=== PATIENT | male | born 1955 | race Hispanic/Latino ===

== ENCOUNTER 2019-07-14 02:39 | Emergency (ER) | payer BC ==
[2019-07-14 03:19] LABS: Base Excess-Venous -22.2 mmol/L (-2.0 to 3.0); Bicarbonate (HCO3v) 10.4 mmol/L (22.0-28.0); CO2 Tension (PvCO2) 50.2 mmHg (40.0-50.0); Calcium, Ionized 1.63 mmol/L (See Comments:); Chloride 111 mmol/L (98-107); Glucose 349 mg/dL (80-115); Hemoglobin - Calc 14.7 g/dL (14.0-18.0); Lactate 10.35 mmol/L (0.50-2.20); Potassium 4.7 mmol/L (3.5-5.1); Sodium 137 mmol/L (138-145); vO2 Saturation-calc 44.8 % (60.0-85.0)
[2019-07-14] MEDS ORDERED: Norepinephrine 8 MG in Dextrose 5% in Water 242 ML IVPB SCH (03:30)
[2019-07-14 03:43] LABS: Actual Bicarbonate (HCO3a) 9.4 mEq/L (22-28); Analyzer IN Cardio ER; Base Excess (BEa) -23.3 mEq/L (-2.0 to +3.0); CO2 Tension 48.4 mmHg (35.0-45.0); Calcium, Ionized 1.42 mmol/L (1.12-1.30); Carboxyhemoglobin (COHb) 1.4 gm% (0.0-3.0); Hemoglobin (Hb) 13.9 g/dL (14.0-18.0); O2 Tension (PaO2) 73.2 mmHg (> 80.0)
[2019-07-14 03:54] LABS: Eosinophils 1 % (0-10); Hemoglobin 13.9 g/dL (14.0-18.0); Lymphocytes 79 % (21-51); MDiff Complete? YES; Mean Corpuscular HGB CONC 32.7 g/dL (32.0-36.0); Mean Corpuscular Hemoglobin 32.1 pg (27.0-31.0); Mean Corpuscular Volume 98.1 fL (78.0-98.0); Mean Platelet Volume 9.5 fL (7.4-10.4); Monocytes 4 % (0-10); Myelocyte 2 % (0-0); Neutrophil 14 % (42-75); Platelet Count 148 thou/uL (130-400); RBC Distribution Width 12.2 % (11.5-14.5); Red Blood Cell (RBC) Count 4.34 mill/uL (4.70-6.10); White Blood Cell (WBC) Count 10.8 thou/uL (4.8-10.8)
[2019-07-14 04:06] LABS: ALT (SGPT) 629 U/L (8-55); AST (SGOT) 617 U/L (5-34); Albumin 3.5 g/dL (3.4-4.8); Alkaline Phosphatase 86 U/L (40-110); Anion Gap 32 mmol/L (10-20); BUN (Urea Nitrogen) 21 mg/dL (8.4-25.7); Bilirubin, Total 0.3 mg/dL (0.2-1.2); Calc. Creatinine Clearance 0 mL/min (70-130); Carbon Dioxide 11 mmol/L (23-31); Chloride 102 mmol/L (98-107); Estimated GFR-MDRD 32; Globulin 2.9 g/dL (2.4-3.5); Glucose 362 mg/dL (80-115); Protein, Total 6.4 g/dL (5.8-8.1); Sodium 140 mmol/L (136-145)
[2019-07-14 04:08] LABS: Puncture Site RRA; pH, Arterial 6.91 (7.35-7.45)
--- NOTE | 2019-07-14 08:08 | RAD ---
CHEST 1 VIEW: HISTORY: CPR in progress. Comparison: 05/21/2007. FINDINGS: Cardiac silhouette:Magnified cardiac silhouette main part be due to portable technique. Lines and tubes: Endotracheal tube appears to be just proximal to the belia. Nasogastric tube termin ates in the left upper quadrant. Aorta: Unremarkable. Pulmonary vessels: Prominent. Costophrenic angles: Bilateral pleural effusions. Lungs: Diffuse interstitial and alveolar opacities. Pneumothorax: None. Osseous abnormalities: None. IMPRESSION: 1. Diffuse interstitial and alveolar opacities along with pulmonary vasculature prominence. 2. Endotracheal tube terminating approximately 2 cm above the belia. Nasogastric tube terminates in the left upper quadrant. Transcribed Date/Time: 07/14/2019 8:18 AM
[2019-07-14] MEDS ORDERED: EPINEPHrine 1 MG/10 ML Abboject SYRINGE ONE (13:17)
[2019-07-14] MEDS ORDERED: Calcium Chloride 1 GM/10 ML Abboject SYRINGE ONE (13:17)
[2019-07-14] MEDS ORDERED: Amiodarone 150 MG/3 ML VIAL ONE (13:17)
[2019-07-14] MEDS ORDERED: Sodium Bicarb 50 MEQ/50 ML Abboject 8.4% SYRINGE ONE (13:17)
[2019-07-14] MEDS ORDERED: Lidocaine 2% PF 100 mg/5 ml Syringe ONE (13:17)
== END 2019-07-14 03:55 | disposition expired ==
LOC: EDBD 02:39 → ERS 02:39
DX: I46.9 Cardiac arrest, cause unspecified (principal)
CPT/HCPCS: 31500; 36556; 51702; 71045; 80053; 82330; 82803; 82805; 83605; 83880; 85025; 92950; 93005; 94002; 94760; 96365; 96368; 96375; 96376; J0171; J0282; J2001; J7070